=== PATIENT | female | born 1960 | race Caucasian/White ===

== ENCOUNTER → 2017-10-23 | Outpatient (CLI) | payer BC ==
--- NOTE | 2017-10-23 11:52 | DIAGNOSTIC IMAGING REPORT ---
RENAL ULTRASOUND HISTORY: HEMATURIA, UNSPECIFIED COMPARISON: Abdominal ultrasound 02/07/2012. FINDINGS: Right kidney: 10.1 cm. No hydronephrosis. Normal corticomedullary differentiation and cortical thickness. Left kidney: 10.6 cm. No hydronephrosis. Normal corticomedullary differentiation and cortical thickness. Bladder: Not well distended. No bladder wall thickening. The bilateral ureteral jets were identified. IMPRESSION: Normal renal ultrasound. Electronically signed by: Nigel Medina M.D. 10/23/2017 11:51 AM Dictated Date/Time: 10/23/2017 11:48 AM
== END | disposition home or self-care (01) ==
LOC: C.ULTR 07:57
PROVIDERS: ATTEND Family Medicine
DX: R31.9 Hematuria, unspecified (principal); M54.5 Low back pain

== ENCOUNTER → 2017-11-03 | Outpatient (CLI) | payer BC | END | disposition home or self-care (01) | LOC: C.PATHSPEC 15:31 | PROVIDERS: ATTEND Dentist Endodontics | DX: K05.6 Periodontal disease, unspecified (principal) ==

== ENCOUNTER → 2017-11-10 | Outpatient (CLI) | payer BC | END | disposition home or self-care (01) | LOC: C.PATHSPEC 15:27 | PROVIDERS: ATTEND Urology | DX: R31.29 Other microscopic hematuria (principal); N39.0 Urinary tract infection, site not specified ==